=== PATIENT | male | born 2000 | race Two or more races ===

== ENCOUNTER 2021-02-18 08:35 | Outpatient (REF) | payer OTHER, SELFPAY ==
--- NOTE | ~2021-02-18 | XR_ITS ---
EXAMINATION: XR HAND, RIGHT CLINICAL INFORMATION: Right hand pain COMPARISON: None TECHNIQUE: PA, lateral, and oblique views of the right hand. FINDINGS: Visualized portion of the distal radius and only demonstrate no acute fracture. Carpal rows are well aligned. No carpal or metacarpal fracture. Nondisplaced fractures through the distal phalanx of the third and fourth fingers. No significant overlying soft tissue swelling. XR/XR hand RT min 3V IMPRESSION: Nondisplaced fractures through the distal phalanx of the third and fourth fingers.
== END 2021-02-18 08:36 | disposition home or self-care (01) ==
LOC: HO.HOSX 08:35
PROVIDERS: Visit Provider Physician Assistant
DX: S62.664A Nondisplaced fracture of distal phalanx of right ring finger, initial encounter for closed fracture (principal)
CPT/HCPCS: 73130; 99202